=== PATIENT | female | born 1975 | race Caucasian/White ===

== ENCOUNTER 2016-08-07 12:25 | Emergency (ER) | payer OTHER ==
[~2016-08-07] VITALS: Ht 167.6 cm; Wt 69.0 kg
[~2016-08-07 12:25] MED LIST: ACYC800T57 PO; HYDR-906 PO; METR500T PO; PRED20TA PO
[2016-08-07 12:29] VITALS: Ht 167.6 cm; Wt 69.0 kg
[2016-08-07] MEDS ORDERED: traMADol 50 MG TAB PO ONE (14:00)
--- NOTE | 2016-08-07 14:20 | ERD ---
ER Documentation Chief Complaint Date/Time DATE: 08/07/16 TIME: 14:19 Chief Complaint lt foot pain radiating to leg x 1 week HPI 40-year-old female with history of HIV comes emergency department with left traumatic foot pain that occurred about 12 days ago. She states she was at home in a heavy wooden chair and fallen onto the lateral aspect of the foot and since then she has had pain that radiates up her leg. It is achy, worse with weightbearing, and she also notices that when she tries to move the foot. She has not had any swelling to the rest of the leg, the swelling has been localized to the left foot. She does not have any chest pain or shortness of breath. Patient reports that her last T-cell count was in February 2016 which she reports as normal however does not recall the number. ROS All systems reviewed and are negative except as per history of present illness. Medications Home Meds Active Scripts Tramadol HCl (Tramadol HCl) 50 Mg Tablet, 50 MG PO Q4 Y for PAIN, #20 TAB Prov:TENA HSU PA-C 08/07/16 Hydrocodone/Acetaminophen ([place] 5-325 Tablet) 1 Each Tablet, 1 TAB PO Q6H Y for PAIN, #7 TAB Prov:SHRUTHI MÉNDEZ PA-C 12/09/15 Acyclovir* (Zovirax*) 800 Mg Tablet, 800 MG PO 5 TIMES DAILY for 7 Days, TAB Prov:SHRUTHI MÉNDEZ PA-C 12/09/15 Prednisone* (Prednisone*) 20 Mg Tab, 40 MG PO DAILY for 4 Days, TAB Prov:SHRUTHI MÉNDEZ PA-C 12/09/15 Metronidazole* (Flagyl*) 500 Mg Tablet, 500 MG PO TID for 7 Days, TAB Prov:TENA HSU PA-C 09/15/15 Allergies Allergies: Coded Allergies: codeine (Verified Allergy, Intermediate, RASH, 12/09/15) PMhx/Soc Medical and Surgical Hx: pt denies Surgical Hx History of Surgery: No Anesthesia Reaction: No Hx Neurological Disorder: No Hx Respiratory Disorders: No Hx Cardiac Disorders: No Hx Psychiatric Problems: No Hx Miscellaneous Medical Probl: Yes (HIV) Hx Alcohol Use: Yes (OCCASSIONAL) Hx Substance Use: No Hx Tobacco Use: No Smoking Status: Never smoker Physical Exam Vitals Vital Signs Date Time Temp Pulse Resp B/P Pulse Ox O2 Delivery O2 Flow Rate FiO2 08/07/16 12:29 98.1 90 18 111/73 98 Physical Exam General: Well-developed, well-nourished. The patient appears in no acute distress. HEENT: Head is normocephalic, atraumatic. No scleral icterus. Neck: Supple. Nontender. Lungs: Clear to auscultation. Normal air movement. Heart: Regular rate and rhythm. S1 and S2 are normal. No murmurs, gallops, or rubs. Abdomen: Nondistended. Extremities: No clubbing or cyanosis. Moving extremities x 4. No weakness. No edema, negative Homans sign. There is some swelling and soft tissue tenderness over the left lateral foot. Neurologic: Alert and oriented 3. No focal deficits. Normal speech and gait. Skin: Normal turgor. No rash or lesions. Results 24 hrs Current Medications Medications (Trade) Dose Ordered Sig/Becky Route PRN Reason Start Time Stop Time Status Last Admin Dose Admin Tramadol HCl (Ultram) 50 mg ONCE ONCE PO 08/07/16 14:00 08/07/16 14:01 DC 08/07/16 14:51 PROCEDURE: Left foot series CLINICAL INDICATION: Trauma 12 days ago. TECHNIQUE: 3 views. COMPARISON: None FINDINGS: Mildly displaced fracture at the base of the left fifth metatarsal bone is identified. Joint spaces are well maintained. No erosions are noted. The soft tissues are unremarkable. IMPRESSION: 1. Mildly displaced fracture at the base of the left fifth metatarsal bone. RPTAT: HH .Rico Juarez MD, Date Time Electronically viewed and signed by .Rico Juarez MD, on 08/07/2016 14: 38 .G/ PROCEDURE: US Lower extremity Venous. CLINICAL INDICATION: Left leg edema, pain TECHNIQUE: Multiple sonographic images of the left lower extremity deep venous system was obtained utilizing grayscale, color-flow, compressive sonography and doppler imaging with augmentation. The images were reviewed on a PACS workstation. COMPARISON: None. FINDINGS: There is normal compressibility and flow within the left common femoral, femoral , posterior tibial, peroneal and popliteal veins. RPTAT: AA IMPRESSION: No sonographic evidence for deep venous thrombosis. .Erik Natarajan MD, Date Time Electronically viewed and signed by .Erik Natarajan MD, on 08/07/2016 14: 28 Procedures/MDM ED COURSE: Patient was given tramadol. Patient's left foot was splinted in a CAM boot and she was given crutches. Splint Assessment: Neurovascularly intact post splint placement with good fit. MSM: 40 yo female comes in with a left foot acute, closed fifth metatarsal fracture. Patient has a zone 1 fracture, patient's left foot was placed in a CAM walker boot. She is neurovascularly intact, no evidence of DVT, cellulitis or limb threatening process. Departure Diagnosis: Primary Impression: Fracture of base of fifth metatarsal bone Condition: Good TENA HSU PA-C August 07, 2016 14:20
--- NOTE | 2016-08-07 14:29 | RADRPT ---
PROCEDURE: US Lower extremity Venous. CLINICAL INDICATION: Left leg edema, pain TECHNIQUE: Multiple sonographic images of the left lower extremity deep venous system was obtained utilizing grayscale, color-flow, compressive sonography and doppler imaging with augmentation. The images were reviewed on a PACS workstation. COMPARISON: None. FINDINGS: There is normal compressibility and flow within the left common femoral, femoral, posterior tibial, peroneal and popliteal veins. RPTAT: AA IMPRESSION: No sonographic evidence for deep venous thrombosis. .Erik Natarajan MD, MD Date Time Electronically viewed and signed by .Erik Natarajan MD, MD on 08/07/2016 14:28 .S/
--- NOTE | 2016-08-07 14:38 | RADRPT ---
PROCEDURE: Left foot series CLINICAL INDICATION: Trauma 12 days ago. TECHNIQUE: 3 views. COMPARISON: None FINDINGS: Mildly displaced fracture at the base of the left fifth metatarsal bone is identified. Joint spaces are well maintained. No erosions are noted. The soft tissues are unremarkable. IMPRESSION: 1. Mildly displaced fracture at the base of the left fifth metatarsal bone. RPTAT: HH .Rico Juarez MD, MD Date Time Electronically viewed and signed by .Rico Juarez MD, on 08/07/2016 14:38 .G/
[2016-08-07] MEDS ORDERED: TRAM50TA2 PO (14:53)
== END 2016-08-07 15:29 | disposition home or self-care (01) ==
LOC: FTE 12:25
DX: S92.352A Displaced fracture of fifth metatarsal bone, left foot, initial encounter for closed fracture (principal); W20.8XXA Other cause of strike by thrown, projected or falling object, initial encounter; Y92.009 Unspecified place in unspecified non-institutional (private) residence as the place of occurrence of the external cause
CPT/HCPCS: 73630; 93971; Z7502; Z7610

== ENCOUNTER 2017-05-14 12:54 | Emergency (ER) | END 2017-05-14 19:28 | disposition home or self-care (01) ==